=== PATIENT | female | born 1960 | race American Indian/Alaskan Native ===

== ENCOUNTER 2018-12-14 10:41 | Emergency (ER) | payer OTHER ==
[2018-12-14] MEDS ORDERED: NACL 0.9% 1000 ML 1,000 ML IV ONE (11:43)
--- NOTE | 2018-12-14 11:54 | Emergency Department Report ---
HPI - General Chief Complaint: Dizziness Time Seen by Provider: 12/14/18 11:26 - HPI HPI: Room 26 The patient is a 58-year-old female presenting with a chief complaint of dizziness. The patient states this morning she had an appointment already scheduled to see a application support manager. Just prior to leaving her house station began to feel dizzy. When she made it to a application support manager office or dizziness worsen she is found to be hypotensive at 70/50. The patient was subsequently sent to the ED. The patient states she had dizziness for the past week, her to go to the emergency Department twice. Earlier this week she states she went to the emergency department for her dizziness and had a CT scan of the brain and chest was eventually discharged home. Yesterday the patient states she had a syncopal episode prompting her to go to the emergency department where she was given IV fluids, had labs drawn and a chest x-ray performed and eventually discharged home. Location: [See above] Duration: One week Quality: Dizziness Severity: Moderate Modifying factors: [see above] Context: [see above] Mode of transportation: [not driving] ED Past Medical Hx - Past Medical History Hx Hypertension: Yes Hx Diabetes: Yes - Surgical History Past Surgical History?: Yes Additional Surgical History: hysterectomy, I and D. - Family History Family history: no significant - Social History Smoking Status: Current Every Day Smoker (1/2 pack per day) Substance Use Type: None (denies illicit drug use) - Medications Home Medications: Home Medications Medication Instructions Recorded Confirmed Last Taken Type Aspirin [Adult Aspirin] 81 mg PO DAILY 12/14/18 12/14/18 Unknown History Dexlansoprazole [Dexilant] 60 mg PO QDAY 12/14/18 12/14/18 Unknown History Diphenhydramine HCl [Nighttime 50 mg PO DAILY 12/14/18 12/14/18 Unknown History Sleep Aid 50MG] Gabapentin [Neurontin] 300 mg PO Q8HR 12/14/18 12/14/18 Unknown History Multivitamin [Multiple Vitamins] 1 each PO DAILY 12/14/18 12/14/18 Unknown History Rivaroxaban [Xarelto] 20 mg PO QDAY 12/14/18 12/14/18 Unknown History Simvastatin 20 mg PO QHS 12/14/18 12/14/18 Unknown History Valsartan [Diovan] 320 mg PO QDAY 12/14/18 12/14/18 Unknown History Ziprasidone HCl [Geodon] 160 mg PO QHS 12/14/18 12/14/18 Unknown History amLODIPine [Norvasc] 10 mg PO DAILY 12/14/18 12/14/18 Unknown History clonazePAM [Clonazepam] 2 mg PO QHS 12/14/18 12/14/18 Unknown History metFORMIN [Glucophage] 500 mg PO QDAY 12/14/18 12/14/18 Unknown History methIMAzole [Methimazole] 5 mg PO DAILY 12/14/18 12/14/18 Unknown History tiZANidine [Zanaflex] 4 mg PO TID 12/14/18 12/14/18 Unknown History ED Review of Systems ROS: Stated complaint: HYPOTENSION/DIZZINESS Other details as noted in HPI Constitutional: no symptoms reported Eyes: denies: eye pain ENT: denies: throat pain Respiratory: no symptoms reported Cardiovascular: denies: chest pain Endocrine: no symptoms reported Gastrointestinal: denies: abdominal pain Genitourinary: denies: dysuria Musculoskeletal: denies: back pain Neurological: other (dizziness) Physical Exam - Physical Exam Vital Signs: Vital Signs 12/14/18 10:45 Temperature 98.2 F Pulse Rate 76 Respiratory 16 Rate Blood Pressure 85/59 [Right] O2 Sat by Pulse 97 Oximetry Vital Signs 12/14/18 12/14/18 10:45 13:21 Temperature 98.2 F Pulse Rate 76 65 Respiratory 16 16 Rate Blood Pressure 85/59 118/79 [Right] O2 Sat by Pulse 97 100 Oximetry Physical Exam: GENERAL: The patient is well-developed well-nourished female lying on stretcher not appearing to be in acute distress. [] HEENT: Normocephalic. Atraumatic. Extraocular motions are intact. Patient has moist mucous membranes. No nystagmus NECK: Supple. Trachea midline CHEST/LUNGS: Clear to auscultation. There is no respiratory distress noted. HEART/CARDIOVASCULAR: Regular. There is no tachycardia. There is no gallop rub or murmur. ABDOMEN: Abdomen is soft, nontender. Patient has normal bowel sounds. There is no abdominal distention. SKIN: There is no rash. There is no edema. There is no diaphoresis. NEURO: The patient is awake, alert, and oriented. The patient is cooperative. The patient has no focal neurologic deficits. The patient has normal speech. Cranial nerves II through XII grossly intact, no drift MUSCULOSKELETAL: There is no evidence of acute injury. ED Course Vital Signs 12/14/18 10:45 Temperature 98.2 F Pulse Rate 76 Respiratory 16 Rate Blood Pressure 85/59 [Right] O2 Sat by Pulse 97 Oximetry - Consultations Consultation #1: 12/14/18 13:17 Cardiology paged 12/14/18 13:[address] Grimes who in turn discussed case with Dr. Healy- requests a troponin and d-dimer be sent. If they're negative patient may be discharged home in the blood pressure is normalized but distracted to discontinue all the pressure medication until she follows up in the office Monday12/14/18 14:34 Patient states she feels improved ED Medical Decision Making - Lab Data Result diagrams: 12/14/18 12:38 12/14/18 12:38 Laboratory Tests 12/14/18 12/14/18 12/14/18 12:38 12:38 12:38 WBC 9.6 RBC 4.03 Hgb 12.8 Hct 38.4 MCV 95 MCH 32 MCHC 34 RDW 13.6 Plt Count 256 Lymph % (Auto) 33.3 Gonzales % (Auto) 5.7 Eos % (Auto) 0.3 Baso % (Auto) 0.7 Lymph # 3.2 Gonzales # 0.5 Eos # 0.0 Baso # 0.1 Seg Neutrophils % 60.0 Seg Neutrophils # 5.7 PT 22.4 H INR 1.92 H APTT 38.3 H D-Dimer Sodium 142 Potassium 4.7 Chloride 110.7 H Carbon Dioxide 21 L Anion Gap 15 BUN 8 Creatinine 1.1 Estimated GFR 51 BUN/Creatinine Ratio 7 Glucose 76 Calcium 9.1 Troponin T 12/14/18 12/14/18 12:38 12:38 WBC RBC Hgb Hct MCV MCH MCHC RDW Plt Count Lymph % (Auto) Gonzales % (Auto) Eos % (Auto) Baso % (Auto) Lymph # Gonzales # Eos # Baso # Seg Neutrophils % Seg Neutrophils # PT INR APTT D-Dimer < 135 Sodium Potassium Chloride Carbon Dioxide Anion Gap BUN Creatinine Estimated GFR BUN/Creatinine Ratio Glucose Calcium Troponin T < 0.010 - Differential Diagnosis orthostasis, anemia Critical care attestation.: If time is entered above; I have spent that time in minutes in the direct care of this critically ill patient, excluding procedure time. ED Disposition Clinical Impression: Dizziness, Hypotension Disposition: DC-01 TO HOME OR SELFCARE Is pt being admited?: No Does the pt Need Aspirin: No Condition: Stable Additional Instructions: Return to the emergency department immediately should you develop worsening symptoms, fever, inability to tolerate food or liquid or any other concerns. Referrals: REJI LAINEZ [Primary Care Provider] - 3-5 Days TODD JESUS MD [Staff Physician] - 12/17/18 Time of Disposition: 14:33
[2018-12-14 12:46] LABS: Basophils # (Auto) 0.1 K/mm3 (0.0-0.1); Basophils % (Auto) 0.7 % (0.0-1.8); Eosinophils % (Auto) 0.3 % (0.0-4.3); Hematocrit 38.4 % (30.3-42.9); Hemoglobin 12.8 gm/dl (10.1-14.3); Lymphocytes # (Auto) 3.2 K/mm3 (1.2-5.4); Lymphocytes % (Auto) 33.3 % (13.4-35.0); Mean Corpuscular HGB Conc 34 % (30-34); Mean Corpuscular Volume 95 fl (79-97); Monocytes # (Auto) 0.5 K/mm3 (0.0-0.8); Monocytes % (Auto) 5.7 % (0.0-7.3); Platelet Count 256 K/mm3 (140-440); Red Blood Count 4.03 M/mm3 (3.65-5.03); Red Cell Distribution Width 13.6 % (13.2-15.2)
[2018-12-14 12:56] LABS: INR 1.92 (0.87-1.13); Partial Thromboplastin Time 38.3 Sec. (24.2-36.6)
[2018-12-14 13:05] LABS: Calcium 9.1 mg/dL (8.4-10.2)
[2018-12-14 15:05] VITALS: BP 121/81
== END 2018-12-14 15:02 | disposition home or self-care (01) ==
LOC: ED 10:41
DX: R42 Dizziness and giddiness (principal); I95.9 Hypotension, unspecified; I10 Essential (primary) hypertension; E11.9 Type 2 diabetes mellitus without complications; F17.200 Nicotine dependence, unspecified, uncomplicated; Z79.82 Long term (current) use of aspirin; Z90.710 Acquired absence of both cervix and uterus; Z88.1 Allergy status to other antibiotic agents; Z88.8 Allergy status to other drugs, medicaments and biological substances
CPT/HCPCS: 36415; 80048; 84484; 85025; 85379; 85610; 85730; 93005; 93010; 96360; 99283; J7030